=== PATIENT | female | born 1985 | race Native Hawaiian/Other Pacific Islander ===

== ENCOUNTER 2018-04-12 22:03 | Emergency (ER) | payer OTHER, MEDICAID, SELFPAY ==
[2018-04-12 22:59] VITALS: BP 132/92; PULSE 82; RESP 16; TEMP 35.8; O2SAT 100
--- NOTE | 2018-05-13 05:58 | ED.DENTAL ---
HPI - Dental/Oral General Chief complaint: Dental/Oral Stated complaint: TOOTH ACHE UNABLE TO SLEEP Time Seen by Provider: 04/13/18 00:38 History of Present Illness HPI Narrative: Patient left AMA prior to evaluation in the emergency department. Chart created and signed due to EMR requirements. Exam Initial Vital Signs Initial Vital Signs: Vital Signs Temperature 96.5 F L 04/12/18 22:59 Pulse Rate 82 04/12/18 22:59 Respiratory Rate 16 04/12/18 22:59 Blood Pressure 132/92 H 04/12/18 22:59 Pulse Oximetry 100 04/12/18 22:59 Discharge Plan Departure Patient Disposition: Left Without Being Seen Discharge Date/Time: 04/13/18 04:36 Interventions: ED Discharge Assessment Last Done: 04/13/18 04:35
== END 2018-04-13 04:36 | disposition left against medical advice (07) ==
PROVIDERS: Emergency Provider Emergency Medicine
DX: K08.89 Other specified disorders of teeth and supporting structures (principal)
CPT/HCPCS: 99281; 99282